=== PATIENT | male | born 1995 | race Caucasian/White ===

== ENCOUNTER 2021-09-15 05:39 | Outpatient (CLI) | payer OTHER ==
[~2021-09-15] VITALS: Ht 182.8 cm; Wt 89.0 kg
[2021-09-21] MEDS ORDERED: RT-ALBUINH IH (13:43)
[2021-09-21] MEDS ORDERED: LORA-404 PO (13:43)
[2021-09-21] MEDS ORDERED: CETI10CA PO (13:43)
[2021-09-21] MEDS ORDERED: ALPR0.5T PO (13:43)
[2021-09-22] MEDS ORDERED: CITA10TA9 PO (08:14)
[2021-09-22] MEDS ORDERED: ACHD5005 PO (10:17)
== END 2021-09-21 13:48 | disposition home or self-care (01) ==
LOC: PREOP 05:39
PROVIDERS: ATTEND Surgery
DX: Z01.818 Encounter for other preprocedural examination (principal)

== ENCOUNTER 2021-09-22 07:15 | Day surgery (SDC) | payer OTHER ==
[2021-09-22] VITALS (11 sets, daily range): BP systolic 125–153; BP diastolic 68–96
[~2021-09-22] VITALS: Ht 182 cm; Wt 89.0 kg
[~2021-09-22 07:15] MED LIST: ALPR0.5T PO; CETI10CA PO; LORA-404 PO; RT-ALBUINH IH
[2021-09-22] MEDS ORDERED: LIDOCAINE/EPI 1%-1:200,000 (XYLOCAINE) 30 ML VIAL ONE (07:51)
[2021-09-22] MEDS ORDERED: ceFAZolin 2 GM IV Premixed 50 ML IV ONE (08:00)
[2021-09-22] MEDS ORDERED: CITA10TA9 PO (08:14)
--- NOTE | 2021-09-22 08:18 | Progress Note-Pre Operative ---
Pre-Operative Progress Note H&P Reviewed The H&P was reviewed, patient examined and no changes noted. Time Seen by Provider: 08:16 Date H&P Reviewed: Sep 22, 2021 Time H&P Reviewed: 08:16 Pre-Operative Diagnosis: Umbilical and Epigastric Hernia, possibly incarcerated BRYAN MICHAEL DO Sep 22, 2021 08:18
[2021-09-22] MEDS: LACTATED RINGERS 1,000 ML IV PRN ×2 (08:27→09:47)
[2021-09-22] MEDS ORDERED: MIDAZOLAM 2 MG/2 ML (VERSED) VIAL ONE (08:44)
[2021-09-22] MEDS ORDERED: fentaNYL INJ 100 MCG/2 ML AMP ONE (08:44)
[2021-09-22] MEDS ORDERED: ROCURONIUM 50 MG/5 ML (ZEMURON) VIAL IV ONE (08:44)
[2021-09-22] MEDS ORDERED: LIDOCAINE PF 2% 5 ML (XYLOCAINE) VIAL ONE (08:44)
[2021-09-22] MEDS ORDERED: proPOfol 200 MG/20 ML (DIPRIVAN) VIAL IV ONE (08:44)
[2021-09-22] MEDS ORDERED: GLYCOPYRROLATE 0.2 MG/ML (ROBINUL) 2 ML VIAL ONE (10:10)
[2021-09-22] MEDS ORDERED: ONDANSETRON 4 MG/2 ML (SDV) Z0FRAN ONE (10:10)
[2021-09-22] MEDS ORDERED: NEOSTIGMINE 3 MG/3 ML VIAL ONE (10:10)
[2021-09-22] MEDS ORDERED: SEVOFLURANE (ULTANE) 15 ML INHAL SOLN ONE (10:10)
[2021-09-22] MEDS ORDERED: HYDROmorphone 2 MG/ML VIAL (DILAUDID) ONE (10:11)
--- NOTE | 2021-09-22 10:16 | Progress Note-Post Operative ---
Post-Operative Progess Note Surgeon (s)/Family And Marriage Counsellor (s) Surgeon BRYAN MICHAEL DO Family And Marriage Counsellor: Charity Pre-Operative Diagnosis Umbilical and Epigastric Hernia, possibly incarcerated Post-Operative Diagnosis Incarcerated Epigastric hernia Incarcerated Umbilical hernia Procedure & Operative Findings Date of Procedure 09/22/21 Procedure Performed/Findings 1) Laparoscopic Epigastric Herniarraphy with mesh placement 2) Laparoscopic Umbilical Herniarraphy with mesh placement COMPLICATIONS: None. INDICATIONS: The patient is a 26, male with both an incarcerated umbilical and epigastric hernia, which have continued to increase in size and cause discomfort. The patient was explained the risk and benefits of the procedure and wished to proceed with the procedure. Consent was signed on the chart. DESCRIPTION OF PROCEDURE: The patient was taken into the operating suite, prepped and draped in sterile fashion. Surgical pause was performed. Local anesthetic was infiltrated in left upper quadrant. A #11 blade scalpel was used to make a small skin incision. Cautery was used to dissect down to the fascia, which was then scored and divided the muscle, went through the posterior sheath and a balloon trocar was inserted into the abdomen. The abdomen was then insufflated. Able to visualize fat incarcerated in epigastric hernia and umbilical hernia; pics taken. A 5 mm trocar was placed in the right mid quadrant and a 5 mm trocar was placed in left lower quadrant. The fat was then taken out of both defects with Ligasure; surprising amount found in the epigastric hernia. Echo Ventralight mesh was then inserted in the abdomen grabbed through a stab incision in the middle of the two hernias. I was going to use two separate meshes for best coverage, but we only had one. Therefore, I placed a 10 x 16cm mesh to cover both hernias with 5cm of coverage in all directions. The balloon was inflated on the mesh. Circumferential tacks were placed with a SecureStrap Tacker. The balloon was then removed and inner crown was created as well. The mesh was tacked with pressure being decreased. The 12 mm fascial defect was then closed using 0 Vicryl. The abdomen was then desufflated,the trocars were removed. The skin was then closed using 4-0 Monocryl in a running subcuticular fashion. The abdomen was washed and dried and Skin Affix was placed over the incisions. The patient tolerated procedure well without any complications. She was taken to recovery room in stable condition. Dr. Nash helped to make incisions, close incisions, identify anatomy, hold anatomy out of the way and help secure mesh. Anesthesia Type GET Estimated Blood Loss Estimated blood loss (mL): scant Specimens/Packing Specimens Removed hernia contents BRYAN MICHAEL DO Sep 22, 2021 10:16
[2021-09-22] MEDS ORDERED: ACHD5005 PO (10:17)
--- NOTE | 2021-09-22 10:18 | Discharge Inst-Surgical ---
Discharge Inst-Surgical Depart Medication/Instructions New, Converted or Re-Newed RX: Transmitted to Pharmacy Patient Instructions Follow up Appt: Make appointment for 1 week. [phone] Instructions: No lifting greater than 20 pounds. No strenuous activity. May shower in 24 hours, no tub bath or soaking. Use incentive spirometer at home as directed. No Smoking Skin/Wound Care: May remove bandages in am. You need to leave the Dermabond on incision it will fall off on it's own. Symptoms to Report: Appetite Changes, Extremity Discoloration, Numbness/Tingling, Swelling Increased, Bleeding Excessive, Eyesight Changes, Pain Increased, Urine Color Change, Constipation(Persistent), Fever over 101 degree F, Pain/Pressure in chest, Urinating Difficulty, Cough Up/Vomit Blood, Heart Beat Irreg/Pounding, Pain/Pressure in jaw, Cramps in feet or legs, Lightheadedness, Pain/Pressure in shoulder, Diarrhea(Persistent), Memory Changes Suddenly, Questions/Concerns, Weight gain consecutive days, Dizziness/Fainting, Nausea/Vomiting, Shortness of Breath, Weight gain over 2 pounds If questions or concerns contact your physician Or seek help at emergency department. Activity Activity as Tolerated: Yes Activity Instructions: Avoid Stress to Incision Driving Instructions: No Driving/Refer to Dr. Fisher Discharge Diet: No Restrictions Diet After 24 Hours: Clear Liquid if Nauseous If Any Problems/Questions/Issu: Contact Your Physician, Go to Emergency Room Skin/Wound Care Infection Signs and Symptoms: Increased Redness, Foul Odor of Wound, Increased Drainage, Skin Itchy or Has a Rash, Increased Swelling, Temperature Above 101 F Wound Care Comment: heating pad to shoulder or neck tonight for pain Stitches/Kali/Dermabond Dis: Dermabond Ice Pack: Ice On and Off Site BRYAN MICHAEL DO Sep 22, 2021 10:18
[2021-09-22] MEDS ORDERED: HYDROcodone/APAP 5 MG/325 MG (LORTAB) TAB ONE (11:29)
[2021-09-22] MEDS ORDERED: HYDROcodone/APAP 5 MG/325 MG (LORTAB) TAB PO ONE (11:30)
--- NOTE | 2021-09-22 13:40 | Anesthesia-General Post-Op ---
General Patient Condition Mental Status/LOC: Same as Preop Cardiovascular: Satisfactory Nausea/Vomiting: Absent Respiratory: Satisfactory Pain: Controlled Complications: Absent Post Op Complications Complications None Follow Up Care/Instructions Patient Instructions None needed. Anesthesia/Patient Condition Patient Condition Patient is doing well, no complaints, stable vital signs, no apparent adverse anesthesia problems. No complications reported per nursing. AWA JONES CRNA Sep 22, 2021 13:39
== END 2021-09-22 13:05 | disposition home or self-care (01) ==
LOC: SDC 07:15
PROVIDERS: ATTEND Surgery
DX: K43.9 Ventral hernia without obstruction or gangrene (principal); K42.9 Umbilical hernia without obstruction or gangrene; J45.909 Unspecified asthma, uncomplicated; F41.9 Anxiety disorder, unspecified; F32.A Depression, unspecified; F17.210 Nicotine dependence, cigarettes, uncomplicated; Z79.899 Other long term (current) drug therapy
CPT/HCPCS: 49572; 49587; 87081; 94664; C1781; 88302

== ENCOUNTER → 2021-09-28 | Outpatient (CLI) | payer OTHER ==
[~2021-09-28] MED LIST changes: +ACHD5005 PO; +CITA10TA9 PO
--- NOTE | 2021-09-28 18:29 | Diagnostic Imaging Report ---
EXAMINATION: Chest 2 view HISTORY: Chest pain and shortness of breath. COMPARISON: None available. FINDINGS: There is an airspace opacity in the left base. No pleural effusion or pneumothorax. Heart size is normal. IMPRESSION: 1. Left base airspace opacity, concerning for pneumonia. Follow-up to resolution recommended. Dictated by: Dictated on workstation # [id number]
== END ==
LOC: RAD 15:58
PROVIDERS: ATTEND Surgery
DX: R07.9 Chest pain, unspecified (principal); R06.02 Shortness of breath; R91.8 Other nonspecific abnormal finding of lung field
CPT/HCPCS: 71046